=== PATIENT | male | born 1980 | race Caucasian/White ===

== ENCOUNTER 2019-03-19 04:25 | Inpatient (IN) | payer OTHER ==
[~2019-03-19] VITALS: Ht 167.6 cm; Wt 74.4 kg
[~2019-03-19 04:25] MED LIST: CARAFATE 1 GM TA1 G1 PO; CELEXA40 MG PO; DESYREL300 MG PO; PREVACID15 MG PO; XANAX XR3 MG PO; ZOFRAN ODT4 MG PO
[2019-03-19 04:26] VITALS: BP 126/96
[2019-03-19 05:07] LABS: HEMATOCRIT 38.6 % (42.0-52.0); HEMOGLOBIN 13.3 gm/dL (14.0-18.0); MCH 31.8 pg (26.0-34.0); MCHC 34.6 g/dL (28.0-37.0); MCV 92.1 fL (80.0-100.0); MPV 5.6 fl. (7.2-11.1); NUCLEATED RBCS 0 /100WBC; PLATELET COUNT* 401 thou/uL (150-400); RDW-CV 13.2 % (10.5-14.5); WBC 7.9 thou/uL (4.0-11.0)
[2019-03-19 05:17] LABS: CALCIUM 8.1 mg/dL (8.5-10.1); CREATININE 0.7 mg/dL (0.6-1.3); POTASSIUM 3.7 mmol/L (3.5-5.1)
[2019-03-19 05:22] LABS: ALBUMIN 2.4 g/dL (3.4-5.0); MAGNESIUM 1.9 mg/dL (1.8-2.4); TOTAL BILIRUBIN 0.3 mg/dL (<0.1-1.0); TOTAL PROTEIN 6.7 g/dL (6.4-8.2)
[2019-03-19 05:32] LABS: PROTIME 9.3 Seconds (9.20-11.50)
[2019-03-19 06:20] LABS: ABSOLUTE EOSINOPHILS 0.6 thou/uL (0.0-0.7); ABSOLUTE LYMPHOCYTES 1.9 thou/uL (0.8-5.3); ABSOLUTE MONOCYTES 0.4 thou/uL (0.0-1.2); ABSOLUTE NEUTROPHILS 5.1 thou/uL (1.6-8.1); ATYPICAL LYMPHS 1 %; MYELOCYTES 7 %; PLATELET ESTIMATE ADEQUATE
[2019-03-19 10:05] VITALS: BP 128/87
[2019-03-19 12:21] LABS: CALCIUM 7.5 mg/dL (8.5-10.1); CREATININE 0.5 mg/dL (0.6-1.3); MAGNESIUM 2.2 mg/dL (1.8-2.4)
[2019-03-19 14:00] VITALS: BP 133/90
[2019-03-19 15:25] VITALS: BP 149/97
[2019-03-19 16:33] VITALS: BP 138/91
[2019-03-19 20:00] VITALS: BP 123/83
[2019-03-20] VITALS: BP 135/92
[2019-03-20 04:00] VITALS: BP 144/89
[2019-03-20 05:36] LABS: HEMATOCRIT 34.4 % (42.0-52.0); HEMOGLOBIN 12.2 gm/dL (14.0-18.0); MCH 32.4 pg (26.0-34.0); MCHC 35.4 g/dL (28.0-37.0); MCV 91.5 fL (80.0-100.0); MPV 5.9 fl. (7.2-11.1); RBC 3.76 mil/uL (4.50-6.00); RDW-CV 12.9 % (10.5-14.5); WBC 6.3 thou/uL (4.0-11.0)
[2019-03-20 06:04] LABS: ALBUMIN 2.2 g/dL (3.4-5.0); CALCIUM 7.3 mg/dL (8.5-10.1); CREATININE 0.7 mg/dL (0.6-1.3); POTASSIUM 3.9 mmol/L (3.5-5.1); TOTAL BILIRUBIN 0.4 mg/dL (<0.1-1.0); TOTAL PROTEIN 5.8 g/dL (6.4-8.2)
[2019-03-20 07:50] VITALS: BP 138/97
[2019-03-20 11:48] VITALS: BP 134/63
[2019-03-20 16:16] VITALS: BP 118/75
[2019-03-20 20:00] VITALS: BP 139/95
[2019-03-21 00:05] VITALS: BP 135/84
[2019-03-21 03:50] LABS: HEMATOCRIT 34.6 % (42.0-52.0); HEMOGLOBIN 12.3 gm/dL (14.0-18.0); MCH 32.4 pg (26.0-34.0); MCHC 35.4 g/dL (28.0-37.0); MCV 91.6 fL (80.0-100.0); MPV 6.2 fl. (7.2-11.1); RBC 3.78 mil/uL (4.50-6.00); RDW-CV 13.2 % (10.5-14.5); WBC 6.7 thou/uL (4.0-11.0)
[2019-03-21 04:04] VITALS: BP 137/88
[2019-03-21 04:27] LABS: ALBUMIN 2.3 g/dL (3.4-5.0); CALCIUM 7.7 mg/dL (8.5-10.1); CREATININE 0.7 mg/dL (0.6-1.3); POTASSIUM 3.7 mmol/L (3.5-5.1); TOTAL BILIRUBIN 0.3 mg/dL (<0.1-1.0); TOTAL PROTEIN 5.9 g/dL (6.4-8.2)
[2019-03-21 07:53] VITALS: BP 135/94
[2019-03-21 12:05] VITALS: BP 132/85
[2019-03-21 16:14] VITALS: BP 134/96
[2019-03-21 20:00] VITALS: BP 147/80
[2019-03-22 00:39] VITALS: BP 147/92
[2019-03-22 13:54] VITALS: BP 147/92
== END 2019-03-22 14:26 | disposition home or self-care (01) | DRG 439 ==
LOC: M.ERS 04:25 → M.2W 06:09 → M.TBA-ER 06:09 → M.2W 15:47
PROVIDERS: Emergency Medicine; Internal Medicine; ADMIT Internal Medicine
DX: K85.20 Alcohol induced acute pancreatitis without necrosis or infection (principal); F10.231 Alcohol dependence with withdrawal delirium; Z88.8 Allergy status to other drugs, medicaments and biological substances; Z90.49 Acquired absence of other specified parts of digestive tract; Z79.899 Other long term (current) drug therapy